=== PATIENT | female | born 1975 | race Caucasian/White ===

== ENCOUNTER 2017-03-02 17:15 | Emergency (ER) | payer BC, OTHER ==
[~2017-03-02] VITALS: Ht 167.6 cm; Wt 65.0 kg
[~2017-03-02 17:15] MED LIST: ANTISOL30 RIGHT EAR; AZIT500I PO; BUSP15TA PO; CLON0.5T PO; MONT10TA2 PO; SYNT25TA PO
[2017-03-02 17:18] VITALS: BP 125/73; PULSE 50; RESP 16; TEMP 98.2; O2SAT 99
[2017-03-02] MEDS ORDERED: LORA1CHW CHEW (17:33)
[2017-03-02] MEDS ORDERED: LEVO.05 PO (17:33)
--- NOTE | 2017-03-02 17:59 | PD ---
HPI Chief Complaint: Shipping And Receiving Coordinator Problem/Complaint Time Seen by Provider: 17:44 Travel History International Travel<30 days: No Contact w/Intl Traveler<30days: No Traveled to known affect area: No History of Present Illness HPI 42-year-old female here for evaluation of possible left ovarian cysts. The patient has had left lower quadrant abdominal pain which she describes as pressure, 6 out of 10, worse with movement and palpation, as well as vaginal bleeding for the last week. She has been having some vaginal spotting which she states is not usual for a normal menstrual period. She has not had sexual intercourse in a long time according to the patient. No urinary symptoms. History of cholecystectomy. No other abdominal surgeries. No fevers or chills. No vaginal discharge other than bleeding. PFSH Past Medical History Asthma: Yes Anxiety: Yes (PANIC) Diminished Hearing: No Respiratory: Yes (ENVIRONMENTAL ALLERGY) Immunizations Current: Yes Thyroid Disease: Yes (HYPOTHYROID) ?: Not Para: 0 Past Surgical History Cholecystectomy: Yes Social History Alcohol Use: No Tobacco Use: No Substance Use: No Allergies-Medications (Allergen,Severity, Reaction): Coded Allergies: Advair (Verified Allergy, Severe, Anaphylaxis, 03/02/17) Penicillin (Verified Allergy, Intermediate, RASH,SYNCOPE, 03/02/17) Cultivated Oat Pollen (Verified Allergy, Mild, 03/02/17) Dust (Verified Allergy, Mild, Wheezing, 03/02/17) Molds and Smuts (Verified Allergy, Mild, Wheezing, 03/02/17) Phenergan (Verified Adverse Reaction, Severe, Hallucinations, 03/02/17) Reported Meds & Prescriptions Reported Meds & Active Scripts Active Reported Claritin (Loratadine) 5 Mg Chew 5 Mg CHEW DAILY Synthroid (Levothyroxine Sodium) 50 Mcg Tab 50 Mcg PO DAILY Review of Systems Except as stated in HPI: all other systems reviewed are Neg Physical Exam Narrative GENERAL: Well-developed, well-nourished, comfortable, no acute distress. SKIN: Focused skin assessment warm/dry. HEAD: Atraumatic. Normocephalic. EYES: Pupils equal and round. No scleral icterus. No injection or drainage. ENT: Mucous membranes pink and moist. CARDIOVASCULAR: Regular rate and rhythm. RESPIRATORY: No accessory muscle use. Clear to auscultation. Breath sounds equal bilaterally. GASTROINTESTINAL: Abdomen soft, nondistended. Moderate left lower quadrant tenderness without peritoneal signs. Rest of abdomen is soft and nontender. Normal bowel sounds. BONDING MACHINE SETTER: Exam performed in the presence of a female nurse. Normal external genitalia. Scant amount of blood in vaginal vault. No vaginal lacerations. Normal cervix. No right adnexal mass or tenderness. No CMT. Moderate left adnexal tenderness without mass. MUSCULOSKELETAL: No obvious deformities. No clubbing. No cyanosis. No edema. NEUROLOGICAL: Awake and alert. No obvious cranial nerve deficits. Motor grossly within normal limits. Normal speech. PSYCHIATRIC: Appropriate mood and affect; insight and judgment normal. Data Data Last Documented VS Vital Signs Date Time Temp Pulse Resp B/P Pulse Ox O2 Delivery O2 Flow Rate FiO2 03/02/17 20:19 64 18 123/76 97 Room Air 03/02/17 17:18 98.2 Orders Beta Hcg (Quant/Titer) (03/02/17 17:51) Complete Blood Count With Diff (03/02/17 17:51) Comprehensive Metabolic Panel (03/02/17 17:51) Gc And Chlamydia Pcr (03/02/17 17:51) Wet Prep Profile (03/02/17 17:51) Urinalysis - C+S If Indicated (03/02/17 17:51) Ed Urine Pregnancytest Poc (03/02/17 17:51) Ketorolac Inj (Toradol Inj) (03/02/17 18:15) Us Pelvis Comp W Dop Transvag (03/02/17 ) Ondansetron Inj (Zofran Inj) (03/02/17 19:30) Ct Abd/Pel W Iv Contrast(Rout) (03/02/17 19:46) Iohexol 350 Inj (Omnipaque 350 Inj) (03/02/17 20:10) Morphine Inj (Morphine Inj) (03/02/17 20:30) Labs Laboratory Tests Test 03/02/17 03/02/17 17:59 18:25 White Blood Count 8.5 TH/MM3 Red Blood Count 4.39 MIL/MM3 Hemoglobin 13.4 GM/DL Hematocrit 39.8 % Mean Corpuscular Volume 90.7 FL Mean Corpuscular Hemoglobin 30.6 PG Mean Corpuscular Hemoglobin 33.8 % Concent Red Cell Distribution Width 13.7 % Platelet Count 315 TH/MM3 Mean Platelet Volume 8.8 FL Neutrophils (%) (Auto) 55.2 % Lymphocytes (%) (Auto) 32.5 % Monocytes (%) (Auto) 9.4 % Eosinophils (%) (Auto) 2.3 % Basophils (%) (Auto) 0.6 % Neutrophils # (Auto) 4.7 TH/MM3 Lymphocytes # (Auto) 2.7 TH/MM3 Monocytes # (Auto) 0.8 TH/MM3 Eosinophils # (Auto) 0.2 TH/MM3 Basophils # (Auto) 0.1 TH/MM3 CBC Comment DIFF FINAL Differential Comment Urine Color YELLOW Urine Turbidity CLEAR Urine pH 6.5 Urine Specific [place] 1.021 Urine Protein NEG mg/dL Urine Glucose (UA) NEG mg/dL Urine Ketones NEG mg/dL Urine Occult Blood LARGE Urine Nitrite NEG Urine Bilirubin NEG Urine Leukocyte Esterase NEG Urine RBC 0-3 /hpf Urine WBC 0-2 /hpf Urine Squamous Epithelial 0-5 /hpf Cells Urine Mucus RARE /lpf Microscopic Urinalysis Comment CULT NOT INDICATED Sodium Level 141 MEQ/L Potassium Level 3.8 MEQ/L Chloride Level 103 MEQ/L Carbon Dioxide Level 30.3 MEQ/L Anion Gap 8 MEQ/L Blood Urea Nitrogen 9 MG/DL Creatinine 0.77 MG/DL Estimat Glomerular Filtration 82 ML/MIN Rate Random Glucose 94 MG/DL Calcium Level 9.1 MG/DL Total Bilirubin 0.2 MG/DL Aspartate Amino Transf 22 U/L (AST/SGOT) Alanine Aminotransferase 31 U/L (ALT/SGPT) Alkaline Phosphatase 48 U/L Total Protein 7.6 GM/DL Albumin 4.2 GM/DL Human Chorionic Gonadotropin, LESS THAN 1 Quant MIU/ML Clue Cells (Wet Prep) NONE SEEN Vaginal Trichomonas (Wet Prep) NONE SEEN Vaginal Yeast (Wet Prep) NONE SEEN MDM Medical Decision Making Medical Screen Exam Complete: Yes Emergency Medical Condition: Yes Differential Diagnosis Ovarian cyst, ovarian torsion, ectopic , cystitis, UTI, colitis Narrative Course Vital signs show heart rate 50, blood pressure 125/73, pulse ox 99% on room air , oral temp of 98.2F. CBC is unremarkable. CMP is unremarkable. Beta hCG is negative. UA shows large occult blood, otherwise unremarkable. Wet prep is negative for yeast, negative for Trichomonas, negative for clue cells. Pelvic ultrasound: CONCLUSION: 1. Unable to obtain a good arch or waveform involving the right ovary as detailed above. This may simply be a technically related tissue. I cannot completely exclude ovarian torsion. 2. Bilateral simple ovarian cysts. The largest measures 3.4 cm on the left. 3. Trace amount of fluid within the endometrial canal. Patient was made aware of all findings. She was given a dose of IV Toradol with improvement in pain initially, however on reassessment her pain has returned. Pain is only on her left lower quadrant/pelvic area. She has no right lower quadrant pain or tenderness on exam. Case discussed with on-call OB hospitalist regarding pelvic ultrasound reading inpatient clinical presentation. Ovarian torsion is unlikely. Given ongoing pain, CT abdomen pelvis was ordered to rule out another etiology for the patient's pain such as colitis or diverticulitis. CT abdomen pelvis: CONCLUSION: 1. No acute abnormality. 2. 3.5 cm left adnexal cyst consistent with an ovarian cyst. Upon reassessment the patient is resting comfortably. She is feeling much better. She is stable for discharge home with outpatient follow-up with an OB/ BONDING MACHINE SETTER doctor this week. She was informed on when to return to the emergency department. She verbalizes understanding and agreement with plan. Diagnosis Primary Impression: Left ovarian cyst Referrals: David Vargas MD 3 days Building Manager Building Manager 3 days Additional Instructions: Follow-up with an HEMMING AND TACKING MACHINE OPERATOR doctor this week. Return to the emergency department for worsening symptoms or any other concerns. Scripts Oxycodone-Acetaminophen (Percocet)5-325 mg Tab1 Tab PO Q6H PRN (PAIN) #10 TAB Ref 0 Prov:Jesus Adams MD 03/02/17 Ondansetron Odt (Zofran Odt)4 Mg Tab4 Mg SL Q8HR PRN (Nausea/Vomiting) #15 TAB Ref 0 Prov:Jesus Adams MD 03/02/17 Disposition: DISCHARGE HOME Condition: Stable Jesus Adams MD Mar 02, 2017 17:59
[2017-03-02 18:08] LABS: AUTOMATED NEUTROPHIL # 4.7 TH/MM3 (1.8-7.7); BASOPHIL # 0.1 TH/MM3 (0-0.2); BASOPHIL % 0.6 % (0.0-2.0); EOSINOPHIL # 0.2 TH/MM3 (0-0.4); EOSINOPHIL % 2.3 % (0.0-4.0); HEMATOCRIT 39.8 % (35.0-46.0); HEMO FLAGS DIFF FINAL; LYMPH % 32.5 % (9.0-44.0); LYMPHOCYTE # 2.7 TH/MM3 (1.0-4.8); MEAN CELL VOLUME 90.7 FL (80.0-100.0); MEAN CORPUSCULAR HEMOGLOBIN 30.6 PG (27.0-34.0); MEAN CORPUSCULAR HGB CONC 33.8 % (32.0-36.0); MONO % 9.4 % (0.0-8.0); NEUT % 55.2 % (16.0-70.0); PLATELET COUNT 315 TH/MM3 (150-450); RED BLOOD COUNT 4.39 MIL/MM3 (4.00-5.30); RED CELL DISTRIBUTION WIDTH 13.7 % (11.6-17.2); WHITE BLOOD COUNT 8.5 TH/MM3 (4.0-11.0)
[2017-03-02 18:10] LABS: BLOOD, URINE LARGE (NEG); GLUCOSE,URINE NEG (NEG); KETONE, URINE NEG (NEG); NITRITE,URINE NEG (NEG); PH, URINE 6.5 (5.0-8.5)
[2017-03-02] MEDS ORDERED: KETOROLAC TROMETHAMINE 30 MG/ML (IVP) VIAL IV PUSH ONE (18:15)
[2017-03-02 18:17] LABS: URINE COLOR YELLOW (YELLW/STRAW)
[2017-03-02 18:18] LABS: CHLORIDE 103 MEQ/L (98-107); COMMENT (UR) CULT NOT INDICATED; CULTURE IF INDICATED CULT NOT INDICATED; MUCUS URINE RARE /lpf (OCC); POTASSIUM 3.8 MEQ/L (3.5-5.1); RBC, URINE 0-3 /hpf (0-3); SODIUM (NA) 141 MEQ/L (136-145); SQUAMOUS EPITHELIAL CELL URINE 0-5 /hpf (0-5); WBC, URINE 0-2 /hpf (0-5)
[2017-03-02 18:22] LABS: ANION GAP 8 MEQ/L (5-15); BICARBONATE 30.3 MEQ/L (21.0-32.0); BLOOD UREA NITROGEN 9 MG/DL (7-18)
[2017-03-02 18:25] LABS: ALT (GPT) 31 U/L (10-53); AST (GOT) 22 U/L (15-37); GLOMERULAR FILTRATION RATE 82 ML/MIN (>89)
[2017-03-02 18:27] LABS: TOTAL BILIRUBIN ADULT 0.2 MG/DL (0.2-1.0)
[2017-03-02 18:28] LABS: ALKALINE PHOSPHATASE 48 U/L (45-117)
[2017-03-02 18:30] LABS: BETA HCG QUANT LESS THAN 1 MIU/ML (0-5)
[2017-03-02 19:11] VITALS: BP 138/79; PULSE 54; RESP 18; O2SAT 99
[2017-03-02] MEDS ORDERED: ONDANSETRON HCL 4 MG/2 ML VIAL IV PUSH ONE (19:30)
--- NOTE | 2017-03-02 19:36 | RADHPO ---
EXAM DATE/TIME: 03/02/2017 18:49 This report includes an Addendum and supersedes previous reports for this exam. [facility] COMPARISON: No previous studies available for comparison. INDICATIONS : Left pelvic pain and irregular bleeding. MEDICAL HISTORY : Left pelvic pain and irregular bleeding. SURGICAL HISTORY : Cholecystectomy. Shoulder surgery. ENCOUNTER: Initial ACUITY: 1 week PAIN SCORE: 7/10 LOCATION: Bilateral pelvis MEASUREMENTS: TRANSABDOMINAL: RIGHT OVARY: 3.2 x 1.7 x 2.1 cm LEFT OVARY: 5.9 x 3.8 x 4.1 cm TRANSVAGINAL: UTERUS: 10.2 x 4.5 x 4.1 cm ENDOMETRIAL STRIPE: 5 mm RIGHT OVARY: 3.1 x 2.0 x 1.8 cm cm LEFT OVARY: 6.0 x 3.9 x 4.3 cm FINDINGS: UTERUS: The myometrium has homogeneous echotexture without mass. A trace amount of free fluid is seen within the endometrial canal. RIGHT OVARY: Via the transabdominal route a good arterial waveform was not able to be identified. Via the transvag inal route the right ovary is not visible. Small simple cysts are seen. The largest measures 1 cm. LEFT OVARY: The right ovary contains 2 simple cysts. The largest measures 3.4 cm. A good arterial waveform is obs erved. MISCELLANEOUS: No free fluid. CONCLUSION: 1. Unable to obtain a good arch or waveform involving the right ovary as detailed above. This may sim ply be a technically related tissue. I cannot completely exclude ovarian torsion. 2. Bilateral simple ovarian cysts. The largest measures 3.4 cm on the left. 3. Trace amount of fluid within the endometrial canal. Ellis Cuadra Jr., MD on March 02, 2017 at 19:31 Board Certified Radiologist. This report was verified electronically. ADDENDUM: There is a typographical error in the impression #1. It should read unable to obtain a good arterial waveform. Ellis Cuadra Jr., MD on March 02, 2017 at 20:35 Board Certified Radiologist. This report was verified electronically.
[2017-03-02] MEDS ORDERED: IOHEXOL 350 MG/ML 10 ML VIAL (for RAD DIAG) IV ONE (20:10)
[2017-03-02 20:19] VITALS: BP 123/76; PULSE 64; RESP 18; O2SAT 97
--- NOTE | 2017-03-02 20:25 | RADHPO ---
EXAM DATE/TIME: 03/02/2017 20:02 [facility] COMPARISON: No previous studies available for comparison. INDICATIONS : Left lower quadrant pain with vaginal bleeding. IV CONTRAST: 100 cc Omnipaque 350 (iohexol) IV ORAL CONTRAST: No oral contrast ingested. RADIATION DOSE: 6.53 CTDIvol (mGy) MEDICAL HISTORY : Ovarian cysts. SURGICAL HISTORY : Cholecystectomy. ENCOUNTER: Initial ACUITY: 2 days PAIN SCALE: 6/10 LOCATION: Left lower quadrant abdomen TECHNIQUE: Volumetric scanning of the abdomen and pelvis was performed. Using automated exposure control and ad justment of the mA and/or kV according to patient size, radiation dose was kept as low as reasonably achievable to obtain optimal diagnostic quality images. FINDINGS: LOWER LUNGS: The visualized lower lungs are clear. LIVER: Homogeneous density without lesion. There is no dilation of the biliary tree. No calcified gallston es. SPLEEN: Normal size without lesion. PANCREAS: Within normal limits. KIDNEYS: Normal in size and shape. There is no mass, stone or hydronephrosis. ADRENAL GLANDS: Within normal limits. VASCULAR: There is no aortic aneurysm. BOWEL/MESENTERY: The stomach, small bowel, and colon demonstrate no acute abnormality. There is no free intraperitone al air or fluid. ABDOMINAL WALL: Within normal limits. RETROPERITONEUM: There is no lymphadenopathy. BLADDER: No wall thickening or mass. REPRODUCTIVE: An approximate 3.5 cm left adnexal cyst. Uterus is anteverted but otherwise unremarkable. INGUINAL: There is no lymphadenopathy or hernia. MUSCULOSKELETAL: Within normal limits for patient age. CONCLUSION: 1. No acute abnormality. 2. 3.5 cm left adnexal cyst consistent with an ovarian cyst. Ellis Cuadra Jr., MD on March 02, 2017 at 20:21 Board Certified Radiologist. This report was verified electronically.
[2017-03-02] MEDS ORDERED: MORPHINE SULFATE 4 MG/ML INJ IV PUSH ONE (20:30)
[2017-03-02] MEDS ORDERED: ZOFR4TAB3 SL (20:40)
[2017-03-02] MEDS ORDERED: PERC5TAB12 PO (20:40)
[2017-03-02 20:58] VITALS: RESP 18
[2017-03-02 21:19] LABS: CHLAMYDIA PCR NOT DETECTED (NOT DETECT); NEISSERIA PCR NOT DETECTED (NOT DETECT)
[2017-03-02 21:23] VITALS: BP 136/66
[2017-04-04] MEDS ORDERED: VITA100064 PO (11:33)
[2017-04-04] MEDS ORDERED: FERR65TA PO (11:33)
[2017-04-04] MEDS ORDERED: NORC5TAB PO (11:33)
[2017-04-05] MEDS ORDERED: birth control PO (06:18)
[2017-04-05] MEDS ORDERED: NORC5TAB PO (08:33)
== END 2017-03-02 21:28 | disposition home or self-care (01) ==
LOC: PHED 17:15
DX: N83.202 Unspecified ovarian cyst, left side (principal); N93.9 Abnormal uterine and vaginal bleeding, unspecified; E03.9 Hypothyroidism, unspecified; Z87.09 Personal history of other diseases of the respiratory system; Z86.59 Personal history of other mental and behavioral disorders
CPT/HCPCS: 74177; 76830; 76856; 80053; 81001; 84702; 84703; 85025; 87210; 87491; 87591; 93975; 96374; 96375; 99284; J1885; J2270; J2405; Q9967

== ENCOUNTER → 2017-04-05 | Day surgery (SDC) | payer OTHER ==
[~2017-04-05] VITALS: Ht 167.6 cm; Wt 64.6 kg
[~2017-04-05] MED LIST changes: +ACETAMINOPHEN 1000 MG/100 ML VIAL IV ONE; +ACETAMINOPHEN/HYDROcodone 325 MG/5 MG TAB PO PRN; -ANTISOL30 RIGHT EAR; -AZIT500I PO; +BUPIVACAINE/EPINEPHRINE 0.25% 50 ML VIAL ONE; -BUSP15TA PO; +CHLORHEXIDINE GLUCONATE 2 % 1 PACK (2 CLOTHS) TOPICAL PRN; -CLON0.5T PO; +DO NOT ADM ANY ANTICOAGULANT DRUGS PRN; +FAMOTIDINE 20 MG/2 ML VIAL ONE; +FERR65TA PO; +INSULIN HUMAN REGULAR 1,000 UNITS/10 ML VIAL SQ PRN; +KETOROLAC TROMETHAMINE 60 MG/2 ML (IM) VIAL IM ONE; +LACTATED RINGER'S 1000 ML INJ 1,000 ML IV ONE; +LACTATED RINGER'S 1000 ML IV PRN; +LEVO.05 PO; +LORA1CHW CHEW; +METOPROLOL TARTRATE 25 MG TAB PO PRN; +MIDAZOLAM HCL 2 MG/2 ML VIAL ONE; -MONT10TA2 PO; +NEOSTIGMINE 3 MG/3 ML SYR IV ONE; +NORC5TAB PO; +ONDANSETRON HCL 4 MG/2 ML VIAL IV PUSH ONE; +POVIDONE IODINE 5% (ANTISEPSIS KIT) 4 APPLICATIONS EACH NARE PRN; +PROPOFOL 200 MG/20 ML AMP IV ONE; +SODIUM CHLORID 0.9% 500 ML IV PRN; -SYNT25TA PO; +VITA100064 PO; +ZOFR4TAB3 SL; +birth control PO; +fentaNYL CITRATE 250 MCG/5 ML AMP ONE
[2017-04-05 06:20] VITALS: BP 125/71; PULSE 67; RESP 18; TEMP 98.5; O2SAT 97
[2017-04-05 06:33] LABS: AUTOMATED NEUTROPHIL # 3.9 TH/MM3 (1.8-7.7); BASOPHIL # 0.1 TH/MM3 (0-0.2); EOSINOPHIL # 0.1 TH/MM3 (0-0.4); EOSINOPHIL % 2.2 % (0.0-4.0); HEMATOCRIT 41.7 % (35.0-46.0); HEMO FLAGS DIFF FINAL; LYMPH % 27.7 % (9.0-44.0); LYMPHOCYTE # 1.8 TH/MM3 (1.0-4.8); MEAN CELL VOLUME 89.2 FL (80.0-100.0); MEAN CORPUSCULAR HEMOGLOBIN 29.5 PG (27.0-34.0); MEAN CORPUSCULAR HGB CONC 33.1 % (32.0-36.0); MONO % 8.7 % (0.0-8.0); NEUT % 60.4 % (16.0-70.0); PLATELET COUNT 287 TH/MM3 (150-450); RED BLOOD COUNT 4.67 MIL/MM3 (4.00-5.30); RED CELL DISTRIBUTION WIDTH 13.3 % (11.6-17.2); WHITE BLOOD COUNT 6.4 TH/MM3 (4.0-11.0)
--- NOTE | 2017-04-05 08:29 | PD.OP ---
Operative Report Date of Surgery: April 05, 2017 Preoperative Diagnosis: (1) Left ovarian cyst Postoperative Diagnosis: (1) Left ovarian cyst Procedure: operative LSC with bilateral removal of paratubal cysts Anesthesia: general Barney Surgeon: Iker Lee [facility] Director(s): Iker Ferguson MD April 05, 2017 08:29
--- NOTE | 2017-04-05 08:39 | HHI.DCPOC ---
Discharge Care Plan Diagnosis: (1) Left ovarian cyst Report Symptoms to Your Doctor -Temperate above 100.5 degrees -Redness, of incision or excessive or foul smelling drainage -Unusual pain or calf pain -Increased vaginal bleeding -Painful or difficulty urinating -Feelings of extreme sadness or anxiety after 2 weeks Goals to Promote Your Health * To prevent worsening of your condition and complications * To maintain your health at the optimal level Directions to Meet Your Goals Take your medications as prescribed Follow your dietary instruction Follow activity as directed Ensure plenty of rest for recovery Drink fluids for hydration Keep your appointments as scheduled Take your immunizations and boosters as scheduled If your symptoms worsen call your PCP, if no PCP go to Urgent Care Center or Emergency Room Smoking is Dangerous to Your Health. Avoid second hand smoke Call the 24-hour crisis hotline for domestic abuse at Iker Lee MD April 05, 2017 08:39
[2017-04-05 10:14] VITALS: BP 129/73; PULSE 58; RESP 16; TEMP 97.4; O2SAT 99
--- NOTE | 2017-04-05 12:33 | MP ---
cc: HIGINIO LEE M.D. DATE OF SURGERY: 04/05/2017 PROCEDURE Operative laparoscopy with bilateral paratubal cyst removal. PREOPERATIVE DIAGNOSIS Pelvic pain left lower quadrant and bilateral paratubal cysts. POSTOPERATIVE DIAGNOSIS Pelvic pain left lower quadrant and bilateral paratubal cysts. SURGEON Dr. Higinio Lee ESTIMATED BLOOD LOSS Less than 10 cc. COMPLICATIONS None. FINDINGS Bilateral tubal ovarian cysts. Normal ovaries bilaterally. No other abnormalities seen in the upper or lower abdomen. SURGEON Dr. Higinio Lee ANESTHESIA General, Dr. Barney SPECIMENS Bilateral paratubal cysts. PROCEDURE IN DETAIL After informed consent the patient was taken to the operating room where she was placed under general anesthesia, placed in supine position with legs in the Marcus stirrups. The abdomen, perineum and vagina were prepped and draped in normal sterile fashion. After adequate anesthesia was assured a speculum was placed in the vagina. The cervix was grasped with a single-tooth tenaculum. An acorn uterine manipulator was placed in the cervix without difficulty. The bladder had been drained with a red Dye catheter. A timeout had been taken prior to this. After gloves were changed a 5 mm infraumbilical incision was made after injection of 0.25% Marcaine with epinephrine. We entered the abdomen under direct visualization. The upper and lower abdomen were normal. There were bilateral tuboovarian cysts with the left being 3 cm in size. We placed a 5 mm trocar suprapubically in the left lower quadrant. The Harmonic scalpel was used to remove both paratubal cysts. Good hemostasis was achieved. They were removed intact but did drain. Once the paratubal cysts were removed we surveyed the uterus and no abnormalities were seen. There was a 2 cm fundal fibroid seen. All instruments were removed from the abdomen. All three trocars were removed. The skin was closed with a simple stitch. The patient tolerated the procedure well. She was extubated and taken to the recovery room in stable condition. All instruments were removed from the abdomen and the vagina. MD CECY Martini/FABIOLA /8:14 AM /12:25 PM
== END | disposition home or self-care (01) ==
LOC: HSDC 05:29
PROVIDERS: ATTEND Obstetrics & Gynecology
DX: R10.2 Pelvic and perineal pain (principal); N83.8 Other noninflammatory disorders of ovary, fallopian tube and broad ligament
CPT/HCPCS: 00840; 58662; 84703; 85025; 86850; 86900; 86901; 88304; J0131; J1885; J2250; J2405; J2710; J3010; J7120